=== PATIENT | male | born 1985 | race American Indian/Alaskan Native ===

== ENCOUNTER 2024-06-07 23:51 | Emergency (ER) | payer BC ==
[2024-06-08] MEDS: Ketorolac 30 MG/ML SDV IM ONE (02:31)
[2024-06-08] MEDS: cefTRIAXone 1 GM, Lidocaine 1% 2.1 ML IM ONE (02:32)
[2024-06-08] MEDS: Dexamethasone 4 MG/ML SDV IM ONE (02:32)
== END 2024-06-08 02:43 | disposition home or self-care (01) ==
LOC: DL.ED 23:51
DX: J02.0 Streptococcal pharyngitis (principal); J06.9 Acute upper respiratory infection, unspecified; B97.89 Other viral agents as the cause of diseases classified elsewhere; F17.210 Nicotine dependence, cigarettes, uncomplicated
CPT/HCPCS: 87430; 87635; 87804; 96372; 99283; J0696; J1100; J1885; J3490; U0002

== ENCOUNTER 2025-03-20 00:41 | Emergency (ER) | payer BC | END 2025-03-20 01:15 | LOC: DL.ED 00:41 | DX: Z53.21 Procedure and treatment not carried out due to patient leaving prior to being seen by health care provider (principal) ==